=== PATIENT | male | born 1965 | race Two or more races ===

== ENCOUNTER 2020-04-20 20:35 | Emergency (ER) | payer SELFPAY ==
[~2020-04-20] VITALS: Ht 162.6 cm; Wt 90.0 kg
[2020-04-20] MEDS ORDERED: IBUPROFEN 600MG TABLET PO STA (23:18)
[2020-04-21 00:38] VITALS: BP 122/78
== END 2020-04-21 00:39 | disposition home or self-care (01) ==
LOC: ER 20:35
DX: M54.5 Low back pain (principal); V03.90XA Pedestrian on foot injured in collision with car, pick-up truck or van, unspecified whether traffic or nontraffic accident, initial encounter; Y93.01 Activity, walking, marching and hiking; Y92.9 Unspecified place or not applicable
CPT/HCPCS: 72100; 73502; 99284

== ENCOUNTER 2020-05-27 17:52 | Emergency (ER) | payer MEDICAID ==
[~2020-05-27] VITALS: Ht 170.2 cm; Wt 82.0 kg
[2020-05-27 18:06] VITALS: BP 109/66
== END 2020-05-27 20:46 | disposition home or self-care (01) ==
LOC: ER 17:52
DX: L05.91 Pilonidal cyst without abscess (principal)
CPT/HCPCS: 99281

== ENCOUNTER 2021-09-22 15:55 | Emergency (ER) | payer MEDICAID ==
[~2021-09-22] VITALS: Ht 160 cm; Wt 78.0 kg
[2021-09-22 16:13] VITALS: BP 161/87
[2021-09-22] MEDS ORDERED: ONDANSETRON 4MG ODT PO ONE (16:30)
[2021-09-22] MEDS ORDERED: LIDOCAINE HCL/PF 1% 10 MG/ML 5ML VIAL INFIL ONE (16:30)
[2021-09-22] MEDS ORDERED: HYDROCODONE/ACETAMINOPHEN 5/325MG TABLET PO ONE (16:30)
[2021-09-22] MEDS ORDERED: BACITRACIN ZINC OINT UDPKT TOP ONE (17:30)
[2021-09-22] MEDS ORDERED: IBUP-2030 MT (17:59)
[2021-09-22] MEDS ORDERED: TRAM50TA MT (17:59)
== END 2021-09-22 18:48 | disposition home or self-care (01) ==
LOC: ER 15:55
DX: S82.65XA Nondisplaced fracture of lateral malleolus of left fibula, initial encounter for closed fracture (principal); S80.812A Abrasion, left lower leg, initial encounter; S93.602A Unspecified sprain of left foot, initial encounter; W22.8XXA Striking against or struck by other objects, initial encounter; Y93.9 Activity, unspecified; Y92.9 Unspecified place or not applicable
CPT/HCPCS: 29515; 73610; 73630; 99284; J3490